=== PATIENT | female | born 1995 | race Caucasian/White ===

== ENCOUNTER 2016-07-19 20:02 | Emergency (ER) | payer BC ==
[~2016-07-19] VITALS: Ht 180.3 cm; Wt 92.7 kg
[~2016-07-19 20:02] MED LIST: NAPROSYN 2250 MG/TAB PO; NORCO 325 MG-51 TAB PO; PRILOTC PO; PROAIR HFA0.09 MG/AC IH; SARAFEM20 M1 PO; SPRINTEC 35 MCG1 TAB PO; VOLTAREN 75 DR75 MG PO
[2016-07-19 20:06] VITALS: TEMP 98.7
[2016-07-19 21:06] LABS: BASO # 0.1 (0.0-0.2); BASO % 0.5 % (0.0-2.0); EOS # 0.5 (0.0-0.7); EOS % 3.8 % (0-4.0); GRAN # 8.9 (1.4-6.5); GRAN % 68.4 % (42.2-75.2); HEMATOCRIT 42.2 % (35.0-45.0); HEMOGLOBIN 14.1 g/dl (12.0-15.0); LYMPH # 2.9 (1.2-3.4); LYMPH % 22.1 % (20.0-51.0); MEAN CELL VOLUME 91 fl (80.0-95.0); MEAN CORPUSCULAR HEMOGLOBIN 30 pg (26.0-32.0); MEAN CORPUSCULAR HGB CONC 33 g/dl (33.0-37.0); MEAN PLATELET VOLUME 11.1 fl (7.4-10.4); MONO # 0.6 (0.1-0.6); MONO % 4.8 % (1.7-9.3); PLATELET COUNT 282 K/mm3 (130-400); RED BLOOD COUNT 4.65 M/mm3 (4.10-5.30); REDCELL DISTRIBUTION WIDTH-CV 12.9 % (11.5-14.5)
[2016-07-19 21:12] LABS: INFLUENZA B NEGATIVE
[2016-07-19 21:13] LABS: PH 6 (5-8); SQUAMOUS EPITHELIAL 0-2 /hpf; URINE APPEARANCE Clear; URINE BACTERIA Occasional /hpf; URINE BILIRUBIN Negative (NEGATIVE); URINE BLOOD Negative (NEGATIVE); URINE COLOR Colorless; URINE GLUCOSE Negative (NEGATIVE); URINE KETONE Negative (NEGATIVE); URINE RBC 0-2 /hpf; URINE UROBILINOGEN Negative (NEGATIVE); URINE WBC 0-2 /hpf
[2016-07-19 21:22] LABS: ADJUSTED CALCIUM 9.3 mg/dL (8.4-10.2); ALANINE AMINOTRANSFERASE 37 U/L (9-52); ALKALINE PHOSPHATASE 81 U/L (50-136); ANION GAP 15 mmol/L (7-16); BILIRUBIN,TOTAL 0.6 mg/dL (0.0-1.0); BLOOD UREA NITROGEN 17 mg/dL (7-17); CALCIUM 10.1 mg/dL (8.4-10.2); CARBON DIOXIDE 26 mmol/L (22-30); CHLORIDE 100 mmol/L (98-107); CREATININE, serum 0.74 mg/dL (0.52-1.25); GLUCOSE 97 mg/dL (74-106); LIPASE 158 U/L (23-300); POTASSIUM 3.8 mmol/L (3.4-5.0); SODIUM 142 mmol/L (137-145); TOTAL PROTEIN 8.8 gm/dL (6.4-8.2)
[2016-07-19 21:27] LABS: C-REACTIVE PROTEIN < 0.5 mg/dL (0.0-0.9)
[2016-07-19] MEDS ORDERED: ZOFRAN ODT4 MG PO (22:40)
[2016-07-19 22:55] VITALS: BP 121/77; PULSE 87
== END 2016-07-19 22:57 | disposition home or self-care (01) ==
LOC: COL.ER 20:02
PROVIDERS: Emergency Medicine
DX: I88.0 Nonspecific mesenteric lymphadenitis (principal); R11.2 Nausea with vomiting, unspecified
CPT/HCPCS: J2405; J7030; Q9967

== ENCOUNTER 2016-07-20 13:22 | Emergency (ER) | payer BC ==
[~2016-07-20] VITALS: Ht 177.8 cm; Wt 92.7 kg
[~2016-07-20 13:22] MED LIST changes: +ZOFRAN ODT4 MG PO
[2016-07-20 13:30] VITALS: BP 116/74; PULSE 84; TEMP 98.9
== END 2016-07-20 14:35 | disposition home or self-care (01) ==
LOC: COL.ER 13:22
DX: T82.838A Hemorrhage due to vascular prosthetic devices, implants and grafts, initial encounter (principal)

== ENCOUNTER 2016-07-24 20:02 | Emergency (ER) | payer BC ==
[~2016-07-24] VITALS: Ht 175.3 cm; Wt 92.7 kg
[2016-07-24 20:42] LABS: PH 7 (5-8); SQUAMOUS EPITHELIAL 0-2 /hpf; URINE APPEARANCE Clear; URINE BACTERIA Rare /hpf; URINE BILIRUBIN Negative (NEGATIVE); URINE BLOOD Negative (NEGATIVE); URINE COLOR Straw; URINE GLUCOSE Negative (NEGATIVE); URINE KETONE Negative (NEGATIVE); URINE RBC None Seen /hpf; URINE UROBILINOGEN Negative (NEGATIVE); URINE WBC None Seen /hpf
[2016-07-24 21:11] LABS: BASO # 0.1 (0.0-0.2); BASO % 0.4 % (0.0-2.0); EOS # 0.1 (0.0-0.7); EOS % 0.5 % (0-4.0); GRAN # 11.3 (1.4-6.5); GRAN % 87.9 % (42.2-75.2); HEMATOCRIT 40.3 % (35.0-45.0); HEMOGLOBIN 13.3 g/dl (12.0-15.0); LYMPH # 0.6 (1.2-3.4); LYMPH % 4.5 % (20.0-51.0); MEAN CELL VOLUME 90 fl (80.0-95.0); MEAN CORPUSCULAR HEMOGLOBIN 30 pg (26.0-32.0); MEAN CORPUSCULAR HGB CONC 33 g/dl (33.0-37.0); MEAN PLATELET VOLUME 11.4 fl (7.4-10.4); MONO # 0.8 (0.1-0.6); MONO % 6.3 % (1.7-9.3); PLATELET COUNT 227 K/mm3 (130-400); RED BLOOD COUNT 4.48 M/mm3 (4.10-5.30); REDCELL DISTRIBUTION WIDTH-CV 12.8 % (11.5-14.5); WHITE BLOOD COUNT 12.8 K/mm3 (4.8-10.8)
[2016-07-24 21:28] LABS: ADJUSTED CALCIUM 10.3 mg/dL (8.4-10.2); ALBUMIN 4.8 gm/dL (3.5-5.0); BILIRUBIN,TOTAL 0.6 mg/dL (0.0-1.0); C-REACTIVE PROTEIN 1.1 mg/dL (0.0-0.9); CALCIUM 10.9 mg/dL (8.4-10.2); CREATININE, serum 0.81 mg/dL (0.52-1.25); POTASSIUM 3.9 mmol/L (3.4-5.0); TOTAL PROTEIN 8.1 gm/dL (6.4-8.2)
[2016-07-24 23:32] VITALS: BP 121/69; PULSE 99; TEMP 99
== END 2016-07-24 23:34 | disposition home or self-care (01) ==
LOC: COL.ER 20:02
PROVIDERS: Emergency Medicine
DX: R50.9 Fever, unspecified (principal); B34.9 Viral infection, unspecified; R10.32 Left lower quadrant pain
CPT/HCPCS: J2405; J7030; Q9967

== ENCOUNTER 2016-08-16 22:29 | Emergency (ER) | payer BC ==
[~2016-08-16] VITALS: Ht 177.8 cm; Wt 93.6 kg
[2016-08-16 22:36] VITALS: TEMP 98.4
[2016-08-16] MEDS ORDERED: MOTRIN 200200 MG/TAB PO (22:36)
[2016-08-16 23:23] LABS: BASO % 0.4 % (0.0-2.0); EOS # 0.2 (0.0-0.7); EOS % 2.5 % (0-4.0); GRAN # 6.7 (1.4-6.5); GRAN % 69.5 % (42.2-75.2); HEMATOCRIT 41.1 % (35.0-45.0); HEMOGLOBIN 13.5 g/dl (12.0-15.0); LYMPH # 2.2 (1.2-3.4); MEAN CELL VOLUME 91 fl (80.0-95.0); MEAN CORPUSCULAR HEMOGLOBIN 30 pg (26.0-32.0); MEAN CORPUSCULAR HGB CONC 33 g/dl (33.0-37.0); MEAN PLATELET VOLUME 11.3 fl (7.4-10.4); MONO # 0.4 (0.1-0.6); MONO % 4.2 % (1.7-9.3); PLATELET COUNT 234 K/mm3 (130-400); WHITE BLOOD COUNT 9.7 K/mm3 (4.8-10.8)
[2016-08-16 23:34] LABS: ADJUSTED CALCIUM 9.6 mg/dL (8.4-10.2); ALBUMIN 4.8 gm/dL (3.5-5.0); BILIRUBIN,TOTAL 0.6 mg/dL (0.0-1.0); CALCIUM 10.2 mg/dL (8.4-10.2); CREATININE, serum 0.72 mg/dL (0.52-1.25); TOTAL PROTEIN 8.3 gm/dL (6.4-8.2)
[2016-08-16 23:45] LABS: PH 6 (5-8); SQUAMOUS EPITHELIAL 0-2 /hpf; URINE APPEARANCE Clear; URINE BACTERIA Rare /hpf; URINE BILIRUBIN Negative (NEGATIVE); URINE BLOOD 1+ (NEGATIVE); URINE COLOR Straw; URINE GLUCOSE Negative (NEGATIVE); URINE KETONE Negative (NEGATIVE); URINE RBC 0-2 /hpf; URINE UROBILINOGEN Negative (NEGATIVE); URINE WBC 0-2 /hpf
[2016-08-17 01:58] VITALS: BP 124/71; PULSE 84
== END 2016-08-17 01:58 | disposition home or self-care (01) ==
LOC: COL.ER 22:29
PROVIDERS: Emergency Medicine
DX: R10.31 Right lower quadrant pain (principal)
CPT/HCPCS: J1170; J2550

== ENCOUNTER 2016-09-15 16:24 | Emergency (ER) | payer BC ==
[~2016-09-15] VITALS: Ht 177.8 cm; Wt 95.0 kg
[~2016-09-15 16:24] MED LIST changes: +MOTRIN 200200 MG/TAB PO
[2016-09-15 16:25] VITALS: BP 132/78; TEMP 99
[2016-09-15] MEDS ORDERED: PROZAC 20MG20 MG PO (16:29)
[2016-09-15] MEDS ORDERED: ZYRTEC 10MG10 MG PO (16:30)
[2016-09-15 17:09] LABS: BASO # 0.1 (0.0-0.2); BASO % 0.4 % (0.0-2.0); EOS # 0.3 (0.0-0.7); EOS % 2.4 % (0-4.0); GRAN # 9.1 (1.4-6.5); GRAN % 72.1 % (42.2-75.2); HEMATOCRIT 44.6 % (35.0-45.0); HEMOGLOBIN 14.9 g/dl (12.0-15.0); LYMPH # 2.6 (1.2-3.4); LYMPH % 20.6 % (20.0-51.0); MEAN CELL VOLUME 90 fl (80.0-95.0); MEAN CORPUSCULAR HEMOGLOBIN 30 pg (26.0-32.0); MEAN CORPUSCULAR HGB CONC 33 g/dl (33.0-37.0); MEAN PLATELET VOLUME 11.1 fl (7.4-10.4); MONO # 0.5 (0.1-0.6); MONO % 4.1 % (1.7-9.3); PLATELET COUNT 259 K/mm3 (130-400); RED BLOOD COUNT 4.95 M/mm3 (4.10-5.30); REDCELL DISTRIBUTION WIDTH-CV 13.2 % (11.5-14.5); WHITE BLOOD COUNT 12.6 K/mm3 (4.8-10.8)
[2016-09-15 17:11] LABS: AMPHETAMINE URINE NEGATIVE; BARBITURATES URINE NEGATIVE; BENZODIAZEPINES URINE NEGATIVE; BUPRENORPHINE URINE NEGATIVE; METHADONE URINE NEGATIVE; OPIATES URINE NEGATIVE; OXYCODONE URINE NEGATIVE; PHENCYCLIDINE URINE NEGATIVE; PROPOXYPHENE URINE NEGATIVE; THC CANNABINOIDS URINE NEGATIVE
[2016-09-15 17:12] LABS: ACETAMINOPHEN < 10 ug/mL (10-30); ADJUSTED CALCIUM 9.4 mg/dL (8.4-10.2); ALANINE AMINOTRANSFERASE 28 U/L (9-52); ALBUMIN 4.7 gm/dL (3.5-5.0); ALKALINE PHOSPHATASE 59 U/L (50-136); ANION GAP 14 mmol/L (7-16); BILIRUBIN,TOTAL 0.8 mg/dL (0.0-1.0); BLOOD UREA NITROGEN 13 mg/dL (7-17); CARBON DIOXIDE 23 mmol/L (22-30); CHLORIDE 102 mmol/L (98-107); CREATININE, serum 0.68 mg/dL (0.52-1.25); GLUCOSE 115 mg/dL (74-106); POTASSIUM 4.2 mmol/L (3.4-5.0); SALICYLATE < 1.0 mg/dL; SODIUM 139 mmol/L (137-145)
[2016-09-15 18:47] VITALS: PULSE 79
== END 2016-09-15 18:48 | disposition home or self-care (01) ==
LOC: COL.ER 16:24
PROVIDERS: Emergency Medicine
DX: F32.9 Major depressive disorder, single episode, unspecified (principal); R45.851 Suicidal ideations

== ENCOUNTER 2016-09-24 | Emergency (ER) | payer BC ==
[~2016-09-24] VITALS: Ht 457.2 cm; Wt 95.9 kg
[~2016-09-24] MED LIST changes: +PROZAC 20MG20 MG PO; +ZYRTEC 10MG10 MG PO
[2016-09-24 00:10] VITALS: TEMP 98.8
[2016-09-24] MEDS ORDERED: ABILIFY2 MG PO (00:15)
[2016-09-24 00:41] LABS: BASO # 0.1 (0.0-0.2); BASO % 0.6 % (0.0-2.0); EOS # 0.3 (0.0-0.7); EOS % 2.6 % (0-4.0); GRAN % 67.5 % (42.2-75.2); HEMATOCRIT 42.5 % (35.0-45.0); LYMPH # 2.7 (1.2-3.4); LYMPH % 22.9 % (20.0-51.0); MEAN CELL VOLUME 92 fl (80.0-95.0); MEAN CORPUSCULAR HEMOGLOBIN 30 pg (26.0-32.0); MEAN CORPUSCULAR HGB CONC 33 g/dl (33.0-37.0); MEAN PLATELET VOLUME 10.9 fl (7.4-10.4); MONO # 0.7 (0.1-0.6); MONO % 6.1 % (1.7-9.3); PLATELET COUNT 260 K/mm3 (130-400); RED BLOOD COUNT 4.64 M/mm3 (4.10-5.30); REDCELL DISTRIBUTION WIDTH-CV 13.1 % (11.5-14.5); WHITE BLOOD COUNT 11.8 K/mm3 (4.8-10.8)
[2016-09-24 00:46] LABS: PH 7 (5-8); SQUAMOUS EPITHELIAL 0-2 /hpf; URINE APPEARANCE Hazy; URINE BACTERIA Rare /hpf; URINE BILIRUBIN Negative (NEGATIVE); URINE BLOOD Negative (NEGATIVE); URINE COLOR Yellow; URINE GLUCOSE Negative (NEGATIVE); URINE KETONE Negative (NEGATIVE); URINE UROBILINOGEN Negative (NEGATIVE)
[2016-09-24 00:51] LABS: ADJUSTED CALCIUM 9.5 mg/dL (8.4-10.2); ALANINE AMINOTRANSFERASE 32 U/L (9-52); ALKALINE PHOSPHATASE 63 U/L (50-136); ANION GAP 15 mmol/L (7-16); BILIRUBIN,TOTAL 0.6 mg/dL (0.0-1.0); BLOOD UREA NITROGEN 14 mg/dL (7-17); CALCIUM 10.3 mg/dL (8.4-10.2); CARBON DIOXIDE 28 mmol/L (22-30); CHLORIDE 101 mmol/L (98-107); CREATININE, serum 0.77 mg/dL (0.52-1.25); GLUCOSE 92 mg/dL (74-106); SODIUM 144 mmol/L (137-145); TOTAL PROTEIN 8.4 gm/dL (6.4-8.2)
[2016-09-24 00:52] LABS: ACETAMINOPHEN < 10 ug/mL (10-30); SALICYLATE < 1.0 mg/dL
[2016-09-24 00:52] LABS: AMPHETAMINE URINE NEGATIVE; BARBITURATES URINE NEGATIVE; BENZODIAZEPINES URINE NEGATIVE; BUPRENORPHINE URINE NEGATIVE; METHADONE URINE NEGATIVE; OPIATES URINE NEGATIVE; OXYCODONE URINE NEGATIVE; PHENCYCLIDINE URINE NEGATIVE; PROPOXYPHENE URINE NEGATIVE; THC CANNABINOIDS URINE NEGATIVE
[2016-09-24] MEDS ORDERED: ATIVAN 1MG T1 MG/TAB PO (04:33)
[2016-09-24 04:43] VITALS: BP 128/84; PULSE 78
== END 2016-09-24 04:44 | disposition home or self-care (01) ==
LOC: COL.ER
PROVIDERS: Emergency Medicine
DX: F32.9 Major depressive disorder, single episode, unspecified (principal); R45.851 Suicidal ideations; F41.9 Anxiety disorder, unspecified; Z91.5 Personal history of self-harm

== ENCOUNTER 2016-11-01 14:20 | Emergency (ER) | payer BC ==
[~2016-11-01] VITALS: Ht 175.3 cm; Wt 95.5 kg
[~2016-11-01 14:20] MED LIST changes: +ABILIFY2 MG PO; +ATIVAN 1MG T1 MG/TAB PO
[2016-11-01 14:21] VITALS: TEMP 98.8
[2016-11-01] MEDS ORDERED: EFFEXOR 75M75 MG/TAB PO (14:43)
[2016-11-01 14:46] LABS: BASO % 0.4 % (0.0-2.0); EOS # 0.2 (0.0-0.7); GRAN # 7.7 (1.4-6.5); GRAN % 71.4 % (42.2-75.2); HEMATOCRIT 43.5 % (35.0-45.0); HEMOGLOBIN 14.4 g/dl (12.0-15.0); LYMPH # 2.4 (1.2-3.4); LYMPH % 22.3 % (20.0-51.0); MEAN CELL VOLUME 91 fl (80.0-95.0); MEAN CORPUSCULAR HEMOGLOBIN 30 pg (26.0-32.0); MEAN CORPUSCULAR HGB CONC 33 g/dl (33.0-37.0); MEAN PLATELET VOLUME 11.3 fl (7.4-10.4); MONO # 0.4 (0.1-0.6); MONO % 3.6 % (1.7-9.3); PLATELET COUNT 215 K/mm3 (130-400); REDCELL DISTRIBUTION WIDTH-CV 12.7 % (11.5-14.5); WHITE BLOOD COUNT 10.7 K/mm3 (4.8-10.8)
[2016-11-01 15:08] LABS: ADJUSTED CALCIUM 9.4 mg/dL (8.4-10.2); ALANINE AMINOTRANSFERASE 23 U/L (9-52); ALBUMIN 4.8 gm/dL (3.5-5.0); ALKALINE PHOSPHATASE 72 U/L (50-136); ANION GAP 14 mmol/L (7-16); BILIRUBIN,TOTAL 0.6 mg/dL (0.0-1.0); BLOOD UREA NITROGEN 14 mg/dL (7-17); CARBON DIOXIDE 25 mmol/L (22-30); CHLORIDE 101 mmol/L (98-107); CREATININE, serum 0.71 mg/dL (0.52-1.25); GLUCOSE 82 mg/dL (74-106); POTASSIUM 4.2 mmol/L (3.4-5.0); SODIUM 139 mmol/L (137-145); TOTAL PROTEIN 8.2 gm/dL (6.4-8.2)
[2016-11-01 15:10] LABS: ACETAMINOPHEN < 10 ug/mL (10-30); SALICYLATE < 1.0 mg/dL
[2016-11-01 15:16] LABS: AMPHETAMINE URINE NEGATIVE; BARBITURATES URINE NEGATIVE; BENZODIAZEPINES URINE POSITIVE; BUPRENORPHINE URINE NEGATIVE; METHADONE URINE NEGATIVE; OPIATES URINE NEGATIVE; OXYCODONE URINE NEGATIVE; PHENCYCLIDINE URINE NEGATIVE; PROPOXYPHENE URINE NEGATIVE; THC CANNABINOIDS URINE NEGATIVE
[2016-11-01 20:47] VITALS: BP 120/66; PULSE 80
== END 2016-11-01 21:16 ==
LOC: COL.ER 14:20
PROVIDERS: Nurse Practitioner
DX: F32.9 Major depressive disorder, single episode, unspecified (principal); R45.851 Suicidal ideations; Z91.5 Personal history of self-harm

== ENCOUNTER 2016-11-20 15:43 | Emergency (ER) | payer BC ==
[~2016-11-20] VITALS: Ht 175.3 cm; Wt 98.6 kg
[~2016-11-20 15:43] MED LIST changes: +EFFEXOR 75M75 MG/TAB PO
[2016-11-20 15:44] VITALS: BP 118/82; TEMP 99.2
[2016-11-20] MEDS ORDERED: LEXAPRO 10MG10 MG PO (15:47)
[2016-11-20] MEDS ORDERED: SPRINTEC 35 MCG1 TAB PO (15:47)
[2016-11-20 16:22] LABS: BASO % 0.4 % (0.0-2.0); EOS # 0.3 (0.0-0.7); EOS % 2.9 % (0-4.0); GRAN # 6.5 (1.4-6.5); GRAN % 64.7 % (42.2-75.2); HEMATOCRIT 39.5 % (35.0-45.0); HEMOGLOBIN 13.2 g/dl (12.0-15.0); LYMPH # 2.5 (1.2-3.4); LYMPH % 24.8 % (20.0-51.0); MEAN CELL VOLUME 90 fl (80.0-95.0); MEAN CORPUSCULAR HEMOGLOBIN 30 pg (26.0-32.0); MEAN CORPUSCULAR HGB CONC 33 g/dl (33.0-37.0); MEAN PLATELET VOLUME 11.2 fl (7.4-10.4); MONO # 0.7 (0.1-0.6); MONO % 6.9 % (1.7-9.3); PLATELET COUNT 257 K/mm3 (130-400); RED BLOOD COUNT 4.37 M/mm3 (4.10-5.30); WHITE BLOOD COUNT 10.1 K/mm3 (4.8-10.8)
[2016-11-20 16:46] LABS: ADJUSTED CALCIUM 8.8 mg/dL (8.4-10.2); ALBUMIN 4.5 gm/dL (3.5-5.0); BILIRUBIN,TOTAL 0.5 mg/dL (0.0-1.0); CALCIUM 9.2 mg/dL (8.4-10.2); CREATININE, serum 0.66 mg/dL (0.52-1.25); POTASSIUM 4.2 mmol/L (3.4-5.0); TOTAL PROTEIN 7.7 gm/dL (6.4-8.2)
[2016-11-20 17:03] VITALS: PULSE 84
[2016-11-20 18:50] LABS: CHLAMYDIA/TRACH by PCR Female NOT DETECTED; NEISSERIA GON by PCR Female NOT DETECTED
== END 2016-11-20 17:03 | disposition home or self-care (01) ==
LOC: COL.ER 15:43
PROVIDERS: Emergency Medicine
DX: N92.0 Excessive and frequent menstruation with regular cycle (principal)

== ENCOUNTER 2017-01-02 20:41 | Emergency (ER) | payer BC ==
[~2017-01-02] VITALS: Ht 175.3 cm; Wt 98.5 kg
[~2017-01-02 20:41] MED LIST changes: +LEXAPRO 10MG10 MG PO
[2017-01-02 20:47] VITALS: TEMP 98.8
[2017-01-02] MEDS ORDERED: GLUCOPHAGE500 MG/TAB PO (20:53)
[2017-01-02 21:28] LABS: BASO # 0.1 (0.0-0.2); BASO % 0.4 % (0.0-2.0); EOS # 0.3 (0.0-0.7); EOS % 2.6 % (0-4.0); GRAN # 6.8 (1.4-6.5); GRAN % 60.3 % (42.2-75.2); HEMATOCRIT 40.1 % (35.0-45.0); HEMOGLOBIN 13.6 g/dl (12.0-15.0); LYMPH # 3.3 (1.2-3.4); LYMPH % 29.5 % (20.0-51.0); MEAN CELL VOLUME 89 fl (80.0-95.0); MEAN CORPUSCULAR HEMOGLOBIN 30 pg (26.0-32.0); MEAN CORPUSCULAR HGB CONC 34 g/dl (33.0-37.0); MEAN PLATELET VOLUME 11.5 fl (7.4-10.4); MONO # 0.8 (0.1-0.6); MONO % 6.8 % (1.7-9.3); PLATELET COUNT 251 K/mm3 (130-400); RED BLOOD COUNT 4.49 M/mm3 (4.10-5.30); REDCELL DISTRIBUTION WIDTH-CV 12.9 % (11.5-14.5); WHITE BLOOD COUNT 11.3 K/mm3 (4.8-10.8)
[2017-01-02 21:35] LABS: PH 5 (5-8); SQUAMOUS EPITHELIAL 0-2 /hpf; URINE APPEARANCE Clear; URINE BACTERIA None Seen /hpf; URINE BILIRUBIN Negative (NEGATIVE); URINE BLOOD Negative (NEGATIVE); URINE COLOR Yellow; URINE GLUCOSE Negative (NEGATIVE); URINE KETONE Negative (NEGATIVE); URINE RBC 0-2 /hpf; URINE UROBILINOGEN Negative (NEGATIVE); URINE WBC 0-2 /hpf
[2017-01-02 21:37] LABS: CALCIUM 10.3 mg/dL (8.4-10.2); CREATININE, serum 0.72 mg/dL (0.52-1.25); POTASSIUM 3.9 mmol/L (3.4-5.0)
[2017-01-02] MEDS ORDERED: PERCOCET 325 MG1 TA2 PO (22:41)
[2017-01-02] MEDS ORDERED: ULTRAM 50MG TAB50 MG PO (22:41)
[2017-01-02 22:52] VITALS: BP 113/68; PULSE 68
== END 2017-01-02 22:56 | disposition home or self-care (01) ==
LOC: COL.ER 20:41
PROVIDERS: Emergency Medicine
DX: R10.32 Left lower quadrant pain (principal); K21.9 Gastro-esophageal reflux disease without esophagitis; F32.9 Major depressive disorder, single episode, unspecified; R11.0 Nausea; Z87.442 Personal history of urinary calculi
CPT/HCPCS: J1170; J1885; J2405; Q9967

== ENCOUNTER → 2017-01-03 | Outpatient (CLI) | payer BC ==
[~2017-01-03] MED LIST changes: +GLUCOPHAGE500 MG/TAB PO; +PERCOCET 325 MG1 TA2 PO; +ULTRAM 50MG TAB50 MG PO
== END ==
LOC: COL.RAD 10:27
DX: R10.2 Pelvic and perineal pain (principal); Z87.42 Personal history of other diseases of the female genital tract

== ENCOUNTER 2017-01-07 08:58 | Emergency (ER) | payer BC ==
[~2017-01-07] VITALS: Ht 175.3 cm; Wt 98.3 kg
[2017-01-07 09:01] VITALS: BP 99/72; PULSE 84; TEMP 98.5
[2017-01-07 09:55] LABS: PH 5 (5-8); URINE APPEARANCE Clear; URINE BACTERIA None Seen /hpf; URINE BILIRUBIN Negative (NEGATIVE); URINE BLOOD Negative (NEGATIVE); URINE COLOR Yellow; URINE GLUCOSE Negative (NEGATIVE); URINE KETONE Negative (NEGATIVE); URINE RBC 0-2 /hpf; URINE UROBILINOGEN Negative (NEGATIVE); URINE WBC 0-2 /hpf
[2017-01-07 10:00] LABS: BASO % 0.4 % (0.0-2.0); EOS # 0.3 (0.0-0.7); EOS % 3.3 % (0-4.0); GRAN # 5.4 (1.4-6.5); GRAN % 60.1 % (42.2-75.2); HEMATOCRIT 40.6 % (35.0-45.0); HEMOGLOBIN 13.4 g/dl (12.0-15.0); LYMPH # 2.7 (1.2-3.4); LYMPH % 29.4 % (20.0-51.0); MEAN CELL VOLUME 90 fl (80.0-95.0); MEAN CORPUSCULAR HEMOGLOBIN 30 pg (26.0-32.0); MEAN CORPUSCULAR HGB CONC 33 g/dl (33.0-37.0); MEAN PLATELET VOLUME 11.2 fl (7.4-10.4); MONO # 0.6 (0.1-0.6); MONO % 6.5 % (1.7-9.3); PLATELET COUNT 231 K/mm3 (130-400); RED BLOOD COUNT 4.51 M/mm3 (4.10-5.30); REDCELL DISTRIBUTION WIDTH-CV 12.8 % (11.5-14.5); WHITE BLOOD COUNT 9.1 K/mm3 (4.8-10.8)
== END 2017-01-07 10:43 | disposition home or self-care (01) ==
LOC: COL.ER 08:58
PROVIDERS: Physician Assistant
DX: R10.2 Pelvic and perineal pain (principal); E28.2 Polycystic ovarian syndrome; K21.9 Gastro-esophageal reflux disease without esophagitis; J45.909 Unspecified asthma, uncomplicated; F32.9 Major depressive disorder, single episode, unspecified
CPT/HCPCS: J1885

== ENCOUNTER 2017-01-16 13:56 | Emergency (ER) | payer BC ==
[~2017-01-16] VITALS: Ht 177.8 cm; Wt 97.7 kg
[2017-01-16 14:08] VITALS: TEMP 98.8
[2017-01-16 16:50] LABS: PH 5 (5-8); SQUAMOUS EPITHELIAL 0-2 /hpf; URINE APPEARANCE Hazy; URINE BACTERIA None Seen /hpf; URINE BILIRUBIN Negative (NEGATIVE); URINE BLOOD Negative (NEGATIVE); URINE COLOR Yellow; URINE GLUCOSE Negative (NEGATIVE); URINE KETONE Negative (NEGATIVE); URINE RBC 0-2 /hpf; URINE UROBILINOGEN Negative (NEGATIVE); URINE WBC 0-2 /hpf
[2017-01-16 17:03] LABS: HEMATOCRIT 41.1 % (35.0-45.0); HEMOGLOBIN 13.4 g/dl (12.0-15.0); MEAN CELL VOLUME 92 fl (80.0-95.0); MEAN CORPUSCULAR HEMOGLOBIN 30 pg (26.0-32.0); MEAN CORPUSCULAR HGB CONC 33 g/dl (33.0-37.0); MEAN PLATELET VOLUME 11.5 fl (7.4-10.4); PLATELET COUNT 255 K/mm3 (130-400); RED BLOOD COUNT 4.47 M/mm3 (4.10-5.30); REDCELL DISTRIBUTION WIDTH-CV 12.9 % (11.5-14.5); WHITE BLOOD COUNT 8.8 K/mm3 (4.8-10.8)
[2017-01-16 17:04] LABS: ADJUSTED CALCIUM 9.5 mg/dL (8.4-10.2); ALANINE AMINOTRANSFERASE 26 U/L (9-52); ALBUMIN 4.9 gm/dL (3.5-5.0); ALKALINE PHOSPHATASE 58 U/L (50-136); ANION GAP 15 mmol/L (7-16); BILIRUBIN,TOTAL 0.4 mg/dL (0.0-1.0); BLOOD UREA NITROGEN 15 mg/dL (7-17); CALCIUM 10.2 mg/dL (8.4-10.2); CARBON DIOXIDE 25 mmol/L (22-30); CHLORIDE 102 mmol/L (98-107); GLUCOSE 78 mg/dL (74-106); SODIUM 143 mmol/L (137-145)
[2017-01-16 18:44] VITALS: BP 112/62; PULSE 76
== END 2017-01-16 18:45 | disposition home or self-care (01) ==
LOC: COL.ER 13:56
PROVIDERS: Physician Assistant Medical
DX: R55 Syncope and collapse (principal); R51 Headache; R11.0 Nausea; R63.0 Anorexia; R53.81 Other malaise; E11.9 Type 2 diabetes mellitus without complications; Z79.84 Long term (current) use of oral hypoglycemic drugs; F32.9 Major depressive disorder, single episode, unspecified; F41.9 Anxiety disorder, unspecified; E28.2 Polycystic ovarian syndrome

== ENCOUNTER 2017-02-23 20:47 | Emergency (ER) | payer BC ==
[~2017-02-23] VITALS: Ht 177.8 cm; Wt 99.1 kg
[2017-02-23 20:52] VITALS: BP 116/72; TEMP 98.2
[2017-02-23] MEDS ORDERED: ALDACTONE50 MG PO (22:10)
[2017-02-23] MEDS ORDERED: LEVOXYL0.025 MG PO (22:10)
[2017-02-23 22:24] LABS: BASO # 0.1 (0.0-0.2); BASO % 0.5 % (0.0-2.0); EOS # 0.3 (0.0-0.7); EOS % 2.3 % (0-4.0); GRAN # 7.6 (1.4-6.5); GRAN % 69.1 % (42.2-75.2); HEMATOCRIT 43.6 % (37.0-47.0); LYMPH # 2.4 (1.2-3.4); LYMPH % 22.3 % (20.0-51.0); MEAN CELL VOLUME 91 fl (80.0-100.0); MEAN CORPUSCULAR HEMOGLOBIN 29 pg (27.0-31.0); MEAN CORPUSCULAR HGB CONC 32 g/dl (33.0-37.0); MEAN PLATELET VOLUME 11.3 fl (7.4-10.4); MONO # 0.6 (0.1-0.6); MONO % 5.5 % (1.7-9.3); PLATELET COUNT 273 K/mm3 (130-400); RED BLOOD COUNT 4.78 M/mm3 (4.10-5.30); REDCELL DISTRIBUTION WIDTH-CV 12.9 % (11.5-14.5); WHITE BLOOD COUNT 10.9 K/mm3 (4.8-10.8)
[2017-02-23 22:36] LABS: ADJUSTED CALCIUM 8.9 mg/dL (8.4-10.2); ALANINE AMINOTRANSFERASE 36 U/L (9-52); ALBUMIN 5.1 gm/dL (3.5-5.0); ALKALINE PHOSPHATASE 68 U/L (50-136); ANION GAP 14 mmol/L (7-16); BILIRUBIN,TOTAL 0.5 mg/dL (0.0-1.0); BLOOD UREA NITROGEN 11 mg/dL (7-17); CALCIUM 9.8 mg/dL (8.4-10.2); CARBON DIOXIDE 29 mmol/L (22-30); CHLORIDE 100 mmol/L (98-107); GLUCOSE 86 mg/dL (74-106); LIPASE 77 U/L (23-300); POTASSIUM 4.1 mmol/L (3.4-5.0); SODIUM 143 mmol/L (137-145); TOTAL PROTEIN 8.7 gm/dL (6.4-8.2)
[2017-02-23 22:40] LABS: PH 6 (5-8); SQUAMOUS EPITHELIAL 0-2 /hpf; URINE APPEARANCE Clear; URINE BACTERIA Rare /hpf; URINE BILIRUBIN Negative (NEGATIVE); URINE BLOOD Negative (NEGATIVE); URINE COLOR Yellow; URINE GLUCOSE Negative (NEGATIVE); URINE KETONE Negative (NEGATIVE); URINE RBC 0-2 /hpf; URINE UROBILINOGEN Negative (NEGATIVE); URINE WBC 0-2 /hpf
[2017-02-23] MEDS ORDERED: PHENERGAN 25 TA25 MG PO (23:00)
[2017-02-23] MEDS ORDERED: BENTYL 20MG20 MG/TAB PO (23:00)
[2017-02-23 23:24] VITALS: PULSE 66
== END 2017-02-23 23:25 | disposition home or self-care (01) ==
LOC: COL.ER 20:47
PROVIDERS: Emergency Medicine
DX: R10.32 Left lower quadrant pain (principal); R10.31 Right lower quadrant pain; R51 Headache; R11.2 Nausea with vomiting, unspecified; F41.9 Anxiety disorder, unspecified; F32.9 Major depressive disorder, single episode, unspecified; J45.909 Unspecified asthma, uncomplicated; E28.2 Polycystic ovarian syndrome; F17.200 Nicotine dependence, unspecified, uncomplicated
CPT/HCPCS: J1885; J2405; J7030